=== PATIENT | male | born 1950 | race Caucasian/White ===

== ENCOUNTER 2025-06-25 11:18 | Observation (INO) | payer MEDICARE, OTHER, SELFPAY ==
[2025-06-25 11:28] VITALS: PULSE 79; O2SAT 97
[2025-06-25 11:30] VITALS: BP 178/109; PULSE 79; PULSE 81; RESP 16; TEMP 37.1; O2SAT 97; O2SAT 99; BMI 31.9
--- NOTE | 2025-06-25 11:51 | ED.NEUROSD ---
HPI - Neuro Symptoms/Deficit General Chief Complaint: Neuro Symptoms/Deficit Stated Complaint: Ringing in ears, Right side numbness Time Seen by Provider: 06/25/25 11:21 History of Present Illness HPI Narrative: 75-year-old gentleman htn, hld, presents with right-sided facial numbness ringing in the ears and right arm looseness with inability to control itx 3 at 9, 1130 and 1145 has been going on for the past 6 months happened twice today has not had any workup up to this point. Patient denies fever, chills, body aches, loss of consciousness, headache, dizziness, blurred vision, chest pain, shortness breath, nausea, vomiting, diarrhea, difficulty swallowing, speaking, bowel or bladder incontinence. Nothing makes it better or worse. Other than what is stated 14 point review of system is negative. On Anticoagulants: No Related Data Allergies Allergy/AdvReac Type Severity Reaction Status Date / Time No Known Drug Allergies Allergy Verified 06/25/25 11:36 Review of Systems Review of Systems ROS Unobtainable: All systems reviewed & are unremarkable except as noted in HPI and below Hematologic/Lymphatic On Anticoagulants: No Exam Narrative Exam Narrative: GENERAL: [75] year old patient appears stated age. Well-developed patient, in mild distress. HEAD: Atraumatic. Normocephalic. EYES: Pupils equal round and reactive. Extraocular motions intact. No scleral icterus. No injection or drainage. ENT: Nose without bleeding, purulent drainage. Throat without erythema, tonsillar hypertrophy or exudate. Airway patent. NECK: Trachea midline. Non tender CARDIOVASCULAR: Regular rate and rhythm without murmurs, gallops, or rubs. RESPIRATORY: Clear to auscultation. Breath sounds equal bilaterally. No wheezes, rales, or rhonchi. GASTROINTESTINAL: Abdomen soft, non-tender, nondistended. EXTREMITIES: No edema or joint tenderness. BACK: Nontender without deformity or crepitance. No flank tenderness. NEURO: AOx3. SKIN: No rash or erythema of visible areas Initial Vital Signs Initial Vital Signs: Vital Signs Temperature 98.7 F 06/25/25 11:30 Pulse Rate 79 06/25/25 11:30 Respiratory Rate 16 06/25/25 11:30 Blood Pressure 178/109 H 06/25/25 11:30 Pulse Oximetry 99 06/25/25 11:30 Oxygen Delivery Method Room Air 06/25/25 11:30 Course Vital Signs Vital signs: Vital Signs - 8 hr 06/25/25 11:30 Temperature 98.7 F Pulse Rate 79 Respiratory Rate 16 Blood Pressure 178/109 H Pulse Oximetry 99 Oxygen Delivery Method Room Air MDM - Neuro Symptoms/Deficit Imaging Data CT scan - head: Radiologist's Impression: [address] [address] [address] Scan Report Signed Patient: Sid Beck MR#: [id number] : 1950 Acct:[id number] Age/Sex: 75 / M Date of Service: 06/25/25 Loc: ED Accession Number: [id number] Procedure: CT head/brain wo con Ordering Provider: Yosef Garcia D.O. PROCEDURE: CT HEAD/BRAIN WO CON INDICATIONS: ams TECHNIQUE: Noncontrast 4.5 mm thick angled axial sections acquired from the foramen magnum to the vertex, with coronal and sagittal reformats. For radiation dose reduction, the following was used: automated exposure control, adjustment of mA and/or kV according to patient size. COMPARISON: None. FINDINGS: Image quality: Diagnostic. CSF spaces: Basal cisterns are patent. No extra-axial fluid collections. The ventricles are symmetric in size and shape. Brain: No intracranial bleeds or mass effect. There is cerebral volume loss, with resultant ventricular and sulcal prominence. Note is made of microvascular atherosclerotic change in the deep white matter of each hemisphere but there is asymmetric low attenuation within the deep white matter adjacent to the frontal horn of the right lateral ventricle best seen centered on series 4 image 17. There are periventricular and deep white matter chronic small vessel ischemic changes. There is intracranial internal carotid artery atherosclerosis. Skull and face: Calvarium and visualized facial bones appear intact, without suspicious lesions. Sinuses: Visualized sinuses and mastoids are clear. IMPRESSION: Moderate microvascular atherosclerotic change within the deep white matter of each hemisphere, and a region of asymmetric lower attenuation is seen centered just leftward from the left lateral ventricle frontal horn, centered on series 4, image 17 and measuring approximately 3.2 cm in maximal axial dimension. This could represent a superimposed new stroke, but is not associated with visible mass effect. MR scanning can establish presence of acute or subacute ischemic injury as the underlying cause. CT angiogram for this patient also is currently scheduled. CTA - brain/neck: Radiologist's Impression: [address] [address] [address] Scan Report Signed Patient: Sid Beck MR#: [id number] : 1950 Acct:[id number] Age/Sex: 75 / M Date of Service: 06/25/25 Loc: ED Accession Number: [id number] Procedure: CT angio head and neck Ordering Provider: Yosef Garcia D.O. PROCEDURE: CT ANGIO HEAD AND NECK INDICATIONS: ams TECHNIQUE: After the administration of intravenous contrast, 1 mm thick sections acquired from the aortic arch through the [place] of [place]. 3-dimensional alnievk-mijtzysbd-ntvlpxidzf (MIP) and/or volume rendering reformats were acquired of the central intracranial vasculature and neck separately. For radiation dose reduction, the following was used: automated exposure control, adjustment of mA and/or kV according to patient size. COMPARISON: [facility], CR, XR CHEST 1V, 06/25/2025, 12:48. [facility], CT, CT HEAD/BRAIN WO CON, 06/25/2025, 12:56. FINDINGS: Image quality: Limited by bolus timing, with venous contamination. Cerebral CT Angiogram: Internal carotid arteries: No acute findings. Intracranial ICA are patent with no significant stenosis. No occlusion. No aneurysm. Anterior cerebral arteries: Unremarkable. No significant stenosis. No occlusion. No aneurysm. Middle cerebral arteries: Unremarkable. No significant stenosis. No occlusion. No aneurysm. Posterior cerebral arteries: Unremarkable. No significant stenosis. No occlusion. No aneurysm. Basilar artery: Unremarkable. No significant stenosis. No occlusion. No aneurysm. Vertebral arteries: Unremarkable as visualized. Dural venous sinuses: Unremarkable given phase of enhancement. Other: Arterial phase appearance of the brain parenchyma is unremarkable. Neck CT Angiogram: Internal carotid arteries: Atherosclerotic irregularity can be seen involving the carotid bifurcation regions. No significant stenosis. No dissection or occlusion. Common carotid arteries: Unremarkable. No significant stenosis. No dissection or occlusion. External carotid arteries: Unremarkable. No occlusion. Vertebral arteries: There is 50% narrowing seen involving the origins of both vertebral arteries. The more superior extracranial portions of both vertebral arteries also demonstrate normal courses and calibers. The right vertebral artery is dominant to the left. Aortic Arch and Mediastinum: Partially visualized aortic arch unremarkable without evidence of aneurysm. Origins of the great vessels unremarkable. Other: Arterial phase soft tissues of the neck and chest are unremarkable. At least moderate lower cervical spine degenerative change can be seen. IMPRESSION: No significant intracranial arterial abnormality is seen. No significant carotid abnormality is seen. 50% narrowing can be seen involving the origins of the vertebral arteries. Additional findings: At least moderate lower cervical spine degenerative change Any quantitative measurements of stenosis were performed using NASCET criteria MDM Narrative Medical decision making narrative: Vital signs, nurse triage note, medication list, previous ER visits, and all imaging studies reviewed. Normal sinus rhythm EKG heart rate of 70 no STT wave changes. NIH stroke scale 0. CT head showed moderate microvascular atherosclerotic changes within deep white matter of each hemisphere and region of asymmetric lower attenuation seen just leftward from the left lateral ventricle measuring 3.2 cm. In axial dimension is cad represent superimposed new stroke but is not associated with visible mass effect. MR scanning could establish presence of acute or subacute ischemic injury as the underlying cause. CT angio no significant intracranial arterial abnormality seen no significant carotid arterial abnormality seen 50% narrowing seen in the origins of the vertebral artery Discharge Plan Departure Patient Disposition: Admitted as Observation Clinical Impression: Cerebrovascular accident
[2025-06-25 11:58] VITALS: BP 162/92; PULSE 75; O2SAT 94
[2025-06-25 12:00] VITALS: BP 149/92; PULSE 76; RESP 16; O2SAT 94
--- NOTE | 2025-06-25 12:43 | DI.CT.S_ITS ---
PROCEDURE: CT ANGIO HEAD AND NECK INDICATIONS: ams TECHNIQUE: After the administration of intravenous contrast, 1 mm thick sections acquired from the aortic arch through the [place] of [place]. 3-dimensional xrexpax-hkxdkyssf-tayrsxlkau (MIP) and/or volume rendering reformats were acquired of the central intracranial vasculature and neck separately. For radiation dose reduction, the following was used: automated exposure control, adjustment of mA and/or kV according to patient size. COMPARISON: [facility], CR, XR CHEST 1V, 06/25/2025, 12:48. [facility], CT, CT HEAD/BRAIN WO CON, 06/25/2025, 12:56. FINDINGS: Image quality: Limited by bolus timing, with venous contamination. Cerebral CT Angiogram: Internal carotid arteries: No acute findings. Intracranial ICA are patent with no significant stenosis. No occlusion. No aneurysm. Anterior cerebral arteries: Unremarkable. No significant stenosis. No occlusion. No aneurysm. Middle cerebral arteries: Unremarkable. No significant stenosis. No occlusion. No aneurysm. Posterior cerebral arteries: Unremarkable. No significant stenosis. No occlusion. No aneurysm. Basilar artery: Unremarkable. No significant stenosis. No occlusion. No aneurysm. Vertebral arteries: Unremarkable as visualized. Dural venous sinuses: Unremarkable given phase of enhancement. Other: Arterial phase appearance of the brain parenchyma is unremarkable. Neck CT Angiogram: Internal carotid arteries: Atherosclerotic irregularity can be seen involving the carotid bifurcation regions. No significant stenosis. No dissection or occlusion. Common carotid arteries: Unremarkable. No significant stenosis. No dissection or occlusion. External carotid arteries: Unremarkable. No occlusion. Vertebral arteries: There is 50% narrowing seen involving the origins of both vertebral arteries. The more superior extracranial portions of both vertebral arteries also demonstrate normal courses and calibers. The right vertebral artery is dominant to the left. Aortic Arch and Mediastinum: Partially visualized aortic arch unremarkable without evidence of aneurysm. Origins of the great vessels unremarkable. Other: Arterial phase soft tissues of the neck and chest are unremarkable. At least moderate lower cervical spine degenerative change can be seen. IMPRESSION: No significant intracranial arterial abnormality is seen. No significant carotid abnormality is seen. 50% narrowing can be seen involving the origins of the vertebral arteries. Additional findings: At least moderate lower cervical spine degenerative change Any quantitative measurements of stenosis were performed using NASCET criteria. Dictated by: Abhishek Butler M.D. on 06/25/2025 at 12:07 Approved by: Abhishek Butler M.D. on 06/25/2025 at 12:10
--- NOTE | 2025-06-25 12:43 | EKG_ITS ---
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
--- NOTE | 2025-06-25 12:43 | DI.RAD.S_ITS ---
PROCEDURE: XR CHEST 1V INDICATIONS: ams TECHNIQUE: One view of the chest was acquired. COMPARISON: None. FINDINGS: Surgical changes and devices: None. Lungs and pleura: Lungs are clear. No pleural effusions or pneumothorax. Mediastinum: Mediastinal contours appear normal. Heart size is normal. Bones and chest wall: No suspicious bony lesions. Overlying soft tissues appear unremarkable. IMPRESSION: No acute cardiopulmonary abnormality is seen. Dictated by: Jonatan Trujillo M.D. on 06/25/2025 at 12:58 Approved by: Jonatan Trujillo M.D. on 06/25/2025 at 12:58
--- NOTE | 2025-06-25 12:43 | DI.CT.S_ITS ---
PROCEDURE: CT HEAD/BRAIN WO CON INDICATIONS: ams TECHNIQUE: Noncontrast 4.5 mm thick angled axial sections acquired from the foramen magnum to the vertex, with coronal and sagittal reformats. For radiation dose reduction, the following was used: automated exposure control, adjustment of mA and/or kV according to patient size. COMPARISON: None. FINDINGS: Image quality: Diagnostic. CSF spaces: Basal cisterns are patent. No extra-axial fluid collections. The ventricles are symmetric in size and shape. Brain: No intracranial bleeds or mass effect. There is cerebral volume loss, with resultant ventricular and sulcal prominence. Note is made of microvascular atherosclerotic change in the deep white matter of each hemisphere but there is asymmetric low attenuation within the deep white matter adjacent to the frontal horn of the right lateral ventricle best seen centered on series 4 image 17. There are periventricular and deep white matter chronic small vessel ischemic changes. There is intracranial internal carotid artery atherosclerosis. Skull and face: Calvarium and visualized facial bones appear intact, without suspicious lesions. Sinuses: Visualized sinuses and mastoids are clear. IMPRESSION: Moderate microvascular atherosclerotic change within the deep white matter of each hemisphere, and a region of asymmetric lower attenuation is seen centered just leftward from the left lateral ventricle frontal horn, centered on series 4, image 17 and measuring approximately 3.2 cm in maximal axial dimension. This could represent a superimposed new stroke, but is not associated with visible mass effect. MR scanning can establish presence of acute or subacute ischemic injury as the underlying cause. CT angiogram for this patient also is currently scheduled. Dictated by: Jonatan Trujillo M.D. on 06/25/2025 at 12:58 Approved by: Jonatan Trujillo M.D. on 06/25/2025 at 13:02
[2025-06-25 13:36] LABS: Add Manual Diff / Slide Review NO; Hematocrit 43.8 % (41-53); Hemoglobin 15.1 g/dL (13.5-17.5); Lymphocytes Absolute Auto 1800 /uL (1100-4500); Mean Corpuscular HGB Conc 34.5 % (30-36); Mean Corpuscular Hemoglobin 32.2 PG (26-34); Mean Corpuscular Volume 93.2 fL (80-100); Platelet Count 225 X10^3/uL (150-400)
--- NOTE | 2025-06-25 13:38 | PM.HP.1 ---
History of Present Illness History of Present Illness Date Patient Seen: 06/25/25 Time Patient Seen: 13:38 Chief complaint: Ringing in ears, Right side numbness Narrative: This is a 75-year-old male with a history of hypertension, hyperlipidemia, hypogonadism, GERD and hypothyroidism who presents with an apparent subacute CVA. Symptoms have been ongoing for about 6 months with short bursts, lasting a few seconds, of right facial numbness, right ear tinnitus, right leg and right arm sensory/motor abnormality. He says that the feeling is that he has to concentrate to maintain control of the right leg and right arm during those 10-15 seconds. He has no tonic-clonic movements and no loss of consciousness. He came in today because he had 3 episodes, lasting 10-15 seconds, within 3 hours this morning. The symptoms are consistently related to moving from a seated/lying down position to a standing position. They do not occur when he is not moving, when he is at rest. CTA shows no significant carotid stenosis. CT brain shows: a region of asymmetric lower attenuation is seen centered just leftward from the left lateral ventricle frontal horn, centered on series 4, image 17 and measuring approximately 3.2 cm in maximal axial dimension. This could represent a superimposed new stroke, but is not associated with visible mass effect. He has no neurologic findings on exam. His NIH score is 0. EKG shows left ventricular hypertrophy, left axis deviation and can not rule out old septal UT. Telemetry is NSR. He has no history of coronary artery disease but is under treatment for hyperlipidemia and hypertension. Assessment and plan: Subacute CVA versus neoplastic FLOOR [employer]ALL [employer] process at the left lateral ventricle frontal horn. -the episodic nature of his symptoms and the sensations he describes are concerning for neoplasm/seizures. -MRIs pending. Echo is ordered. -monitor on telemetry -atorvastatin high dose, continuation of home aspirin, addition of Plavix. Hypertension -continue lisinopril as the CT findings are not consistent with acute CVA so permissive hypertension would not be needed. -blood pressure 149/92 on admission. -EKG abnormalities of LAD/LVH/Old UT - Echo pending Hyperlipidemia -changed from pravastatin 40 mg to atorvastatin 40 mg. Hypothyroidism -continue levothyroxine 0.1 mg daily. GERD -continue Protonix. Hypogonadism -patient takes IM injection treatment 200 mcg testosterone twice a week at home. -hemoglobin 15.1 Backup decision maker is his . DVT prevention: SCDs while in bed and enoxaparin if he is not mobile. [facility] Medical History (Updated 06/25/25 @ 14:17 by Lizbeth Bustos MD) Hypogonadism in male Hypothyroidism GERD (gastroesophageal reflux disease) HLD (hyperlipidemia) HTN (hypertension) Surgical History (Updated 06/25/25 @ 14:20 by Lizbeth Bustos MD) History of tonsillectomy History of operation on finger Family History (Updated 06/25/25 @ 14:18 by Lizbeth Bustos MD) Mother Natural Father Emphysema of lung Social History (Updated 06/25/25 @ 14:19 by Lizbeth Bustos MD) alcohol intake: current additional social history: Alcohol use is mild and is about twice a month Meds Home Medications and Allergies Allergies Allergy/AdvReac Type Severity Reaction Status Date / Time No Known Drug Allergies Allergy Verified 06/25/25 11:36 Review of Systems Review of Systems Narrative: Positive for right face numbness, right arm/leg dyscontrol and acid reflux symptoms. Negative for fevers, chills, seizures, rash, headache, bleeding, dysuria, chest pain, abdominal pain, nausea, vomiting. Exam Vital Signs (past 8 hours): - 06/25/25 11:28 06/25/25 11:30 06/25/25 11:30 Temperature 98.7 F Pulse Rate 79 79 81 Respiratory Rate 16 Blood Pressure 178/109 H Pulse Oximetry 97 99 97 Oxygen Delivery Method Room Air 06/25/25 11:58 06/25/25 11:58 06/25/25 12:00 Temperature Pulse Rate 75 Respiratory Rate Blood Pressure 162/92 H 149/92 H Pulse Oximetry 94 Oxygen Delivery Method 06/25/25 12:00 Temperature Pulse Rate 76 Respiratory Rate 16 Blood Pressure Pulse Oximetry 94 Oxygen Delivery Method Room Air Oxygen Delivery Method Room Air Narrative Exam Narrative: Alert and oriented x3. No apparent distress. NIH 0. Pupils equally round and reactive to light and accommodation. Extraocular muscles are intact. Sclerae are pink and nonicteric. Throat looks normal. JVD is less than 6 cm. No carotid bruits are heard. No lymph nodes are felt head, neck, supraclavicular area. There is no thyromegaly. Heart is regular rate and rhythm without murmur. Lungs are clear to auscultation bilaterally. Extremities have no ankle edema. Skin has no rash or jaundice. Neurologic exam: Jihqiu-bq-cfqz pointing and eioh-se-aisz are normal. He is left-handed but seems to have more tripoler strength on the right side. The left side is considered normal strength also. Tongue is midline. Cranial nerves 2-12 test intact. There is no tremor. Reflexes are normal. Motor function is 5/5 in all extremities. Babinski is not tested. Objective Labs 06/25/25 13:15 06/25/25 13:15 Labs: Laboratory Results - last 24 hr 06/25/25 13:15 WBC 7.1 RBC 4.70 Hgb 15.1 Hct 43.8 MCV 93.2 MCH 32.2 MCHC 34.5 RDW 13.3 Plt Count 225 Neut % (Auto) 62.8 Lymph % (Auto) 24.7 L [place] % (Auto) 8.2 Eos % (Auto) 3.6 Baso % (Auto) 0.7 Neut # (Auto) 4500 Lymph # (Auto) 1800 [place] # (Auto) 600 Eos # (Auto) 300 Baso # (Auto) 100 Assessment & Plan Time-Based Coding :: [TOTAL MINUTES] spent with patient and on the chart (including review of chart, obtaining history, exam, reviewing outside data, placing orders, documenting exam and treatment plan, and counseling patient) on [DATE].
--- NOTE | 2025-06-25 13:43 | DI.MRI.S_ITS ---
PROCEDURE: MR HEAD/BRAIN WO CON INDICATIONS: CVA TECHNIQUE: Non-contrast axial T1 spin echo, axial T2 fast spin echo, sagittal and axial FLAIR, coronal T2 fast spin echo, axial gradient echo, axial diffusion and ADC through the brain. COMPARISON: Located [facility], CT, CT ANGIO HEAD AND NECK, 06/25/2025, 12:56. Located Within [facility], CT, CT HEAD/BRAIN WO CON, 06/25/2025, 12:56. FINDINGS: Image quality: This examination is limited by involuntary motion artifact. CSF spaces: Ventricles appear symmetric in size and shape. Basal cisterns are patent. No extra-axial fluid collections. Brain: Diffusion-weighted images show no acute infarct. Moderate generalized brain parenchymal volume loss and moderate chronic small vessel ischemic change can be seen. Scattered areas of remote infarction can be seen. No intracranial bleeds or mass effects. Brainstem appears normal. No chronic ischemic insults. Normal intravascular flow voids are present. Skull and face: Calvarial bone marrow is normal in signal. Orbits are normal. Sinuses: There is a mucous retention cyst within the left maxillary sinus. Moderate mucosal thickening can be seen within the maxillary sinuses. Mild mucosal thickening can be seen within the ethmoid air cells. No abnormal fluid is seen within the mastoid air cells. IMPRESSION: No findings of acute or subacute infarction can be seen. Note is made of age-appropriate brain parenchymal volume loss and chronic small vessel ischemic changes. Scattered areas of focal remote infarction can be seen. Dictated by: Abhishek Butler M.D. on 06/25/2025 at 14:32 Approved by: Abhishek Butler M.D. on 06/25/2025 at 14:34
--- NOTE | 2025-06-25 13:43 | DI.ECHO.S_ITS ---
[facility] : : [address] : : [place] : : [id number] : : Phone: [phone] Echocardiogram Report + + :Name: VAUGHN PELLETIER Study Date: 06/25/2025 Height: 68 in : :[facility] ReadingLocation: Weight: 210 lb : : Gender: Male BSA: 2.1 m2 : :: 1950 Age: 75 yrs BP: 139/92 mmHg: :Reason For Study: CVA : :Ordering Physician: DEMI, : :MILI Chaparro Performed By: Juan Nguyen : :Referring: MILI SIMMS : + + Interpretation Summary - Left ventricular contractility is moderately compromised. Estimated ejection fraction is approximately 35 to 40% with moderate global hypokinesis. Mild concentric LVH. Grade 2 diastolic dysfunction noted - The right ventricular contractility is normal. - Mild left atrial enlargement. All other cardiac chambers are of normal size. - Mild aortic insufficiency. - No obvious intracardiac shunts. - No obvious intracardiac masses nor thrombi. - No hemodynamically significant pericardial effusion. - Normal right-sided filling pressures. Conclusion: Moderately compromised left ventricular systolic function with grade 2 diastolic dysfunction. Mild aortic insufficiency present. Procedure: A two-dimensional transthoracic echocardiogram with color flow and Doppler was performed. The study quality was technically adequate. There is no prior echocardiogram noted for this patient. The patient was in normal sinus rhythm during the exam. Left Ventricle: The left ventricle is normal in size. Left ventricular wall thickness is mildly increased. There is no ventricular septal defect visualized. The ejection fraction is estimated to be 35-40%. There is moderate global hypokinesis of the left ventricle. Grade II diastolic dysfunction with elevated left atrial pressure. Right Ventricle: The right ventricle is normal in size and function. Atria: The left atrium is mildly dilated. Right atrial size is normal. There is no Doppler evidence for an interatrial shunt. Mitral Valve: There is mild mitral annular calcification. The mitral valve leaflets appear mildly thickened. There is trace mitral regurgitation. Aortic Valve: The aortic valve is trileaflet. The aortic valve opens well. The aortic valve is slightly calcified. There is mild aortic regurgitation. Tricuspid Valve: The tricuspid valve is normal in structure and function. There is a trace or physiologic amount of tricuspid regurgitation. Pulmonic Valve: The pulmonic valve is not well seen, but is grossly normal. There is no pulmonic valvular regurgitation. Great Vessels: The aortic root is normal size. The ascending aorta is at the upper limits of normal in size. The pulmonary artery is normal size. The IVC is dilated (diameter is greater than 2.1 cm) yet it collapses greater than 50% with a sniff. This suggests a right atrial pressure of 8 mm Hg. Pericardium/ Pleura There is no pericardial effusion. There is no pleural effusion. MMode/2D Measurements & Calculations LVIDd: 5.4 cm LVOT diam: 2.0 cm LVIDs: 4.2 cm Ao root diam: 3.8 cm FS: 21.8 % asc Aorta Diam: 3.9 cm EPSS: 1.3 cm IVSd: 1.2 cm LVPWd: 1.1 cm LV bejarano. diameter/BSA (cm/m^2): 2.6 LV sys. diameter/BSA (cm/m^2): 2.0 LA A2 area: 24.1 cm2 RA long axis: 4.7 cm LA A4 area: 25.4 cm2 RA area: 15.7 cm2 LA length (vol): 6.2 cm RA vol: 44.9 ml LA vol: 83.6 ml RA : 21.5 ml/m2 LA vol index: 40.1 ml/m2 IVC diam: 2.1 cm RVD1 (basal): 3.1 cm RVD2 (mid): 2.7 cm TAPSE: 2.5 cm Doppler Measurements & Calculations Ao V2 max: 128.0 cm/sec LVOT Max Mati: 111.7 cm/sec Ao V2 mean: 94.1 cm/sec LV V1 max P.0 mmHg Ao max P.6 mmHg LV V1 VTI: 22.5 cm Ao mean P.8 mmHg RAMEZ(I,D): 2.6 cm2 Ao V2 VTI: 26.1 cm RAMEZ(V,D): 2.6 cm2 sev ratio: 0.86 RAMEZ indexed to BSA (cm^2/m^2): 1.3 AI P1/2t: 565.0 msec AI dec slope: 238.5 cm/sec2 MV E max mati: 75.7 cm/sec PA V2 max: 105.6 cm/sec MV A max mati: 116.9 cm/sec PA V2 mean: 77.0 cm/sec MV E/A: 0.65 PA mean P.6 mmHg Med Peak E' Mati: 5.4 cm/sec PA pr(Accel): 51.6 mmHg E/E' med: 14.1 Lat Peak E' Mati: 5.1 cm/sec E/E' lat: 15.0 E/e' average: 14.5 MV dec time: 0.17 sec [facility] 68.3 ml Reading Physician:IAN
[2025-06-25 13:52] LABS: Alanine Aminotransferase 28 IU/L (<50); Albumin 4.3 g/dL (3.5-5.0); Albumin Globulin Ratio 1.3 (1.0-2.8); Alkaline Phosphatase 28 U/L (38-126); Blood Urea Nitrogen 23 mg/dL (9-20); Calcium 8.8 mg/dL (8.4-10.2); Carbon Dioxide 22 mmol/L (22-32); Chloride 104 mmol/L (98-107); Estimated Glomerular Filt Rate > 60 mL/min (>60); Globulin 3.4 g/dL (1.7-4.1); Glucose 92 mg/dL (70-99); HEMOLYSIS 39 (0-50); Lipase 36 U/L (23-300); Magnesium 1.9 mg/dL (1.6-2.3); Potassium 4.3 mmol/L (3.4-5.1); Sodium 135 mmol/L (137-145); Total Protein 7.7 g/dL (6.3-8.2)
[2025-06-25 14:03] LABS: NT-proBNP (BNP-Adult 18+) 24 pg/mL (<450); Troponin I < 0.012 ng/mL (0.01-0.034)
[2025-06-25] MEDS: ASPIRIN EC 81 MG TABLET PO (14:22)
[2025-06-25 15:16] VITALS: BMI 31.9
[2025-06-25 15:44] VITALS: BP 139/92; PULSE 73; RESP 13; TEMP 36.4; O2SAT 97
[2025-06-25 20:00] VITALS: BP 114/81; PULSE 76; RESP 18; TEMP 36.8; O2SAT 96
[2025-06-25] MEDS: ATORVASTATIN 20 MG TABLET 40 MG PO (20:27)
[2025-06-26] VITALS: BP 114/70; PULSE 77; RESP 15; TEMP 36.7; O2SAT 97
[2025-06-26 04:00] VITALS: PULSE 72
[2025-06-26] MEDS: LEVOTHYROXINE 100 MCG TABLET PO (05:21)
[2025-06-26 05:43] VITALS: BP 114/71
[2025-06-26 07:52] VITALS: BP 115/76; PULSE 79; RESP 18; TEMP 36.7; O2SAT 98
[2025-06-26] MEDS: CLOPIDOGREL 75 MG TABLET PO (09:56)
[2025-06-26] MEDS: ASPIRIN EC 81 MG TABLET PO (09:56)
[2025-06-26] MEDS: ENOXAPARIN 40 MG/0.4 ML SYRINGE SUBCUT (09:56)
--- NOTE | 2025-06-26 10:54 | CM.DANOTE ---
Initial DCP Assessment Note. Review EMR and PT Interview. Met with patient at bedside to discuss discharge needs.PT is alert x 4 sitting up in bed. No acute distress. Patient lives independently with . Payor:? [facility] PCP: Dr. Masterson. Summary & Plan:?75 y/o male arrived to ED with CVA/TIA symptoms. Admitted OBS, Dx with CVA. Symptoms resolved. Plan: Home with today. Discharge Planning/Care Management CM Discharge Assessment Start: 06/25/25 15:16 Freq: Status: Active Protocol: Document 06/26/25 10:52 (Rec: 06/26/25 10:54 [id number]) Discharge Planning Assessment Assigned Discharge Tosin Leary RN CM [employer] Provider Dr. Masterson Insurance Medicare Advance Directives? No History Provided By Patient Has Patient been No admitted in last 30 days? Prior Living House Arrangements Household Members spouse Type of Drives own vehicle transporation used prior to admit Independent with ADL Yes 's Is patient alert and Yes oriented? Caregiver for No Another Barriers to No Discharge Discharge Plan Home Transportation Home with Arrangement Referrals Initiated None needed Review Status In Process Please Provide Date 06/26/25 Initial DC Assessment Was Performed Next Review Type Continued Stay Review
[2025-06-26 11:06] VITALS: BP 133/94; PULSE 78; RESP 18; TEMP 36.8; O2SAT 96
--- NOTE | 2025-06-26 13:18 | P.DS_ITS ---
History of Present Illness History of Present Illness Date Patient Seen: 06/26/25 Time Patient Seen: 09:50 Chief complaint: Ringing in ears, Right side numbness Narrative: This is a 75-year-old male with a history of hypertension, hyperlipidemia, hypogonadism, GERD and hypothyroidism who presents with an apparent subacute CVA. Symptoms have been ongoing for about 6 months with short bursts, lasting a few seconds, of right facial numbness, right ear tinnitus, right leg and right arm sensory/motor abnormality. He says that the feeling is that he has to concentrate to maintain control of the right leg and right arm during those 10- 15 seconds. He has no tonic-clonic movements and no loss of consciousness. He came in today because he had 3 episodes, lasting 10-15 seconds, within 3 hours this morning. The symptoms are consistently related to moving from a seated/lying down position to a standing position. They do not occur when he is not moving, when he is at rest. CTA shows no significant carotid stenosis. CT brain shows: a region of asymmetric lower attenuation is seen centered just leftward from the left lateral ventricle frontal horn, centered on series 4, image 17 and measuring approximately 3.2 cm in maximal axial dimension. This could represent a superimposed new stroke, but is not associated with visible mass effect. He has no neurologic findings on exam. His NIH score is 0. EKG shows left ventricular hypertrophy, left axis deviation and can not rule out old septal RI. Telemetry is NSR. He has no history of coronary artery disease but is under treatment for hyperlipidemia and hypertension. Discharge Providers Provider Date of admission: 06/25/25 13:38 Discharge Date: 06/26/25 Primary care physician: Andre Masterson MD Discharge provider: Graeme Mendes MD Summary Hospital Course Discharge Diagnosis: 1. Right-sided paresthesias, etiology unclear, possible atypical seizures 2. Cardiomyopathy with reduced ejection fraction 3. Hypertension 4. Hyperlipidemia 5. Hypothyroidism 6. GERD 7. Testosterone replacement therapy Hospital Course: The patient was admitted and monitored on telemetry with serial neurologic exams. He had no further episodes during the hospitalization. He remained in sinus rhythm. His imaging evaluation was unremarkable, with no evidence of acute stroke. He had normal cardiac enzymes on admission and there was no chest pain, shortness for breath are referable cardiac symptoms. Given the brief nature of symptoms lasting 15 seconds or less spread out over 6 months, in a stereotyped, typical, repetitive manner, his symptoms were felt most likely to represent atypical seizures, and outpatient neurology consultation or empiric antiseizure medication is recommended if symptoms become more frequent or bothersome. His cardiac status was a new finding with global hypokinesis and reduced ejection fraction on echocardiography. Outpatient nuclear medicine stress testing and consideration of Cardiology consultation is advised. No other issues arose in the patient was interested in discharge home. The patient had been taking pravastatin prior to admission as with switch to atorvastatin at discharge or more effective stroke reduction benefit, although again, this presentation was not typical with ischemic stroke symptoms. The patient acknowledged understanding, agreement and appreciation of this plan of care, and agreed to call back with any questions or concerns. Status at Discharge Cognitive/behavioral status at discharge: oriented Functional status at discharge: independent ambulation Overall status at discharge: patient is back to baseline Time Spent with Patient Time spent: Greater than 30 minutes Exam Vital Signs (past 8 hours): - 06/26/25 05:43 06/26/25 07:52 06/26/25 11:06 Temperature 98.0 F 98.3 F Pulse Rate 79 78 Respiratory Rate 18 18 Blood Pressure 114/71 115/76 133/94 H Pulse Oximetry 98 96 Oxygen Delivery Method Room Air Oxygen Flow Rate 0 Narrative Exam Narrative: GENERAL: This is a well-nourished, well-developed patient, in no apparent distress. HEAD: Atraumatic. Normocephalic. No temporal or scalp tenderness. EYES: Pupils equal round and reactive. Extraocular motions intact. No scleral icterus. No injection or drainage. ENT: Mucous membranes pink and moist. NECK: Trachea midline. No JVD, bruits or lymphadenopathy. Supple, nontender, no meningeal signs. CARDIOVASCULAR: Regular rate and rhythm without murmurs, gallops, or rubs. RESPIRATORY: Clear to auscultation. GASTROINTESTINAL: Abdomen soft, non-tender, nondistended. EXTREMITIES: No clubbing, cyanosis, or edema. NEUROLOGIC: Alert, oriented, speech fluent, full upper and lower motor strength, no focal deficits evident. DERMATOLOGIC: No rashes or skin lesions. Objective Imaging *: My impression: Normal sinus rhythm at 70 beats per minute Left axis deviation Left ventricular hypertrophy with QRS widening ( R in aVL , Kelvin product , Romhilt-Matias ) Cannot rule out Septal infarct , age undetermined Radiologist's impression: 1. Chest x-ray: No acute cardiopulmonary abnormality is seen. 2. Head CT: Moderate microvascular atherosclerotic change within the deep white matter of each hemisphere, and a region of asymmetric lower attenuation is seen centered just leftward from the left lateral ventricle frontal horn, centered on series 4, image 17 and measuring approximately 3.2 cm in maximal axial dimension. This could represent a superimposed new stroke, but is not associated with visible mass effect. MR scanning can establish presence of acute or subacute ischemic injury as the underlying cause. CT angiogram for this patient also is currently scheduled. 3. Head/neck CTA: No significant intracranial arterial abnormality is seen. No significant carotid abnormality is seen. 50% narrowing can be seen involving the origins of the vertebral arteries. Additional findings: At least moderate lower cervical spine degenerative change 4. Brain MRI: No findings of acute or subacute infarction can be seen. Note is made of age-appropriate brain parenchymal volume loss and chronic small vessel ischemic changes. Scattered areas of focal remote infarction can be seen. 5. Echocardiogram: - Left ventricular contractility is moderately compromised. Estimated ejection fraction is approximately 35 to 40% with moderate global hypokinesis. Mild concentric LVH. Grade 2 diastolic dysfunction noted - The right ventricular contractility is normal. - Mild left atrial enlargement. All other cardiac chambers are of normal size. - Mild aortic insufficiency. - No obvious intracardiac shunts. - No obvious intracardiac masses nor thrombi. - No hemodynamically significant pericardial effusion. - Normal right-sided filling pressures. Conclusion: Moderately compromised left ventricular systolic function with grade 2 diastolic dysfunction. Mild aortic insufficiency present. Labs 06/25/25 13:15 06/25/25 13:15 Labs: Laboratory Results - last 24 hr 06/25/25 13:15 WBC 7.1 RBC 4.70 Hgb 15.1 Hct 43.8 MCV 93.2 MCH 32.2 MCHC 34.5 RDW 13.3 Plt Count 225 Neut % (Auto) 62.8 Lymph % (Auto) 24.7 L Kershaw % (Auto) 8.2 Eos % (Auto) 3.6 Baso % (Auto) 0.7 Neut # (Auto) 4500 Lymph # (Auto) 1800 Kershaw # (Auto) 600 Eos # (Auto) 300 Baso # (Auto) 100 Sodium 135 L Potassium 4.3 Chloride 104 Carbon Dioxide 22 BUN 23 H Creatinine 0.80 Estimated GFR > 60 BUN/Creatinine Ratio 28.8 H Glucose 92 Calcium 8.8 Magnesium 1.9 Total Bilirubin 0.8 AST 31 ALT 28 Alkaline Phosphatase 28 L Troponin I < 0.012 NT-Pro-B Natriuret Pep 24 Total Protein 7.7 Albumin 4.3 Globulin 3.4 Albumin/Globulin Ratio 1.3 Lipase 36 PFSH Medical History GERD (gastroesophageal reflux disease) HLD (hyperlipidemia) HTN (hypertension) Hypogonadism in male Hypothyroidism Surgical History History of operation on finger History of tonsillectomy Family History Mother Natural Father Emphysema of lung Social History household members: spouse Smoking Status: Never smoker alcohol intake: current additional social history: Alcohol use is mild and is about twice a month Discharge Plan Discharge Plan Patient Disposition: Home Provider Discharge Comment: Followup with Dr. Kaleigh Masterson 1 week Discharge orders & Medications Prescriptions: New atorvastatin 40 mg tablet 40 mg PO BEDTIME Qty: 30 0RF Continued levothyroxine 100 mcg tablet 100 mcg PO DAILY omeprazole 10 mg capsule,delayed release(/EC) 10 mg PO DAILY lisinopril 10 mg tablet 10 mg PO DAILY testosterone cypionate 200 mg/mL oil 200 mg IM Q7D aspirin 81 mg tablet 81 mg PO DAILY multivitamin [Daily Multi-Vitamin] Tablet 1 tab PO DAILY Follow up/Referrals: Andre Masterson MD [Primary Care Provider, Medical] Visit Report/Discharge Packet Stand Alone Forms: Patient Portal/API, Stroke Signs & Symptoms Discharge Data Primary Care Provider: Andre Masterson Attending Provider: Timoteo Moore Admit Date/Time: 06/25/25 13:38 Quality MIPS - Admit I confirm the patient?s Advance Care Plan is present, Code status is documented, Surrogate decision maker is in patient?s record [If Yes, STOP here]: Yes MIPS - Meds 'Current medications' to include all prescriptions, [id number] products, herbals, cannabis/cannabidiol products, and vitamin/mineral/dietary (nutritional) supplements. I have utilized all available resources to obtain, update, or review the patient?s current medications. [If Yes, STOP here]: Yes MIPS - DC The patient has a history of heart transplant or Left Ventricular Assist Device (LVAD). If yes, STOP here.: No The patient has current or prior documentation of left ventricular ejection fraction (LVEF) less than or equal to 40%, or moderate or severely depressed left ventricular systolic function.: No A. The patient was prescribed or already taking an Angiotensin-Converting Enzyme (ORIN) Inhibitor, or Angiotensin Receptor Carlos (ARB).: Yes B. The patient was prescribed or already taking a beta-carlos. [If Yes to Both A & B, STOP here]: No Patient not prescribed/taking ORIN or ARB, no reason given.: No Patient not prescribed/taking beta-carlos, no reason given.: No PROFEE Charge Codes Discharge inpatient/observation: 12452
== END 2025-06-26 14:15 | disposition home or self-care (01) ==
LOC: ED 13:29 → AC 13:38
PROVIDERS: Admitting Provider Hospitalist; Emergency Provider Family Medicine; PCP Family Medicine; Referring Provider Family Medicine; Visit Provider Hospitalist
DX: R20.2 Paresthesia of skin (principal); H93.13 Tinnitus, bilateral; I42.8 Other cardiomyopathies; I10 Essential (primary) hypertension; E78.5 Hyperlipidemia, unspecified; K21.9 Gastro-esophageal reflux disease without esophagitis; E03.9 Hypothyroidism, unspecified; Z79.890 Hormone replacement therapy; R29.700 NIHSS score 0
CPT/HCPCS: 36415; 70450; 70496; 70498; 70551; 71045; 80053; 83690; 83735; 83880; 84484; 85025; 93005; 93306; 96372; 99284; G0378; J1650; Q9967